=== PATIENT | female | born 1940 | race Caucasian/White ===

== ENCOUNTER 2016-11-25 20:33 | Inpatient (IN) | payer OTHER ==
[~2016-11-25] VITALS: Ht 152.4 cm; Wt 79.4 kg
[~2016-11-25 20:33] MED LIST: ACIPHEX20 MG PO; ELAVIL50 MG PO; LEVOTHROID75 MCG PO; LOPRESSOR25 MG PO; XANAX0.125 MG PO; ZESTRIL,PRINIVI10 MG PO
[2016-11-25 21:29] LABS: EOSINOPHIL (%) 0.1 % (0-5); HEMATOCRIT 41.1 % (36.0-46.0); IMMATURE GRANULOCYTE COUNT 0.2 K/uL; INSTRUMENT ABS NEUTROPHIL CT 16.2 K/uL; LYMPHOCYTE COUNT 1.1 K/uL (1.0-2.8); MCH 29.4 PG (29.0-34.0); MCHC 32.4 G/DL (30.0-36.0); MCV 90.7 FL (83-99); MEAN PLAT.VOLUME 10.2 uM^3 (9.5-12.4); MONOCYTE (%) 6.1 % (3-12); MONOCYTE COUNT 1.1 K/uL (0-0.8); NEUTROPHIL COUNT 16.2 K/uL (1.8-6.4); PLATELET COUNT 218 K/uL (156-360); RBC DIS.WIDTH-CV 13.8 % (11.8-14.6); RBC DIS.WIDTH-SD 45.5 % (39-53); RED BLOOD COUNT 4.53 M/uL (3.80-5.20); WHITE BLOOD COUNT 18.7 K/uL (4.1-10.2)
[2016-11-25 21:38] LABS: CHLORIDE 104 mEq/L (99-109); POTASSIUM 3.9 mEq/L (3.7-5.4); SODIUM 140 mEq/L (136-147)
[2016-11-25 21:40] LABS: GLUCOSE 196 mg/dL (70-99)
[2016-11-25 21:41] LABS: ANION GAP 14 MEQ/L (2-14)
[2016-11-25 21:42] LABS: TOTAL BILIRUBIN 0.5 mg/dL (0.0-1.0)
[2016-11-25 21:43] LABS: ALKALINE PHOSPHATASE 72 IU/L (3-129)
[2016-11-25 21:44] LABS: GFR ESTIMATE (CALCULATED) 29 mL/min/
[2016-11-25 21:45] LABS: UREA NITROGEN (BUN) 30 mg/dL (9-23)
[2016-11-25 21:47] LABS: LIPASE 16 U/L (1.0-51.0)
[2016-11-25 21:51] LABS: TROP-I INTERPRETATION NEGATIVE; TROPONIN-I < 0.01 ng/mL (0.0-0.30)
[2016-11-26] MEDS ORDERED: PRINIVIL5 MG PO (00:03)
[2016-11-26] MEDS ORDERED: XANAX0.25 MG PO (00:04)
[2016-11-26] MEDS ORDERED: ELAVIL75 MG PO (00:04)
[2016-11-26] MEDS ORDERED: SYNTHROID75 MCG PO (00:05)
[2016-11-26] MEDS ORDERED: MELATONIN3 MG PO (00:05)
[2016-11-26] MEDS ORDERED: GARLIC100 MG PO (00:05)
[2016-11-26] MEDS ORDERED: FISH OIL 1,0001 EAC7 PO (00:05)
[2016-11-26] MEDS ORDERED: TYLENOL EXTRA500 MG PO (00:05)
[2016-11-26] MEDS ORDERED: FAMOTIDINE20 MG PO (00:06)
[2016-11-26] MEDS ORDERED: VOLTAREN 1% GE100 GM TP (00:06)
[2016-11-26] MEDS ORDERED: PRAMIPEXOLE0.125 MG PO (00:06)
[2016-11-26] MEDS ORDERED: WELLBUTRIN SR150 MG PO (00:06)
[2016-11-26] MEDS ORDERED: PREDNISONE1 MG PO (00:07)
[2016-11-26] MEDS ORDERED: METAXALONE800 MG PO (00:07)
[2016-11-26] MEDS ORDERED: LO-DOSE ASPIRIN81 M2 PO (00:07)
[2016-11-26] MEDS ORDERED: PREDNISONE5 MG PO (00:07)
[2016-11-26] MEDS ORDERED: PRAVASTATIN SOD40 MG PO (00:07)
[2016-11-26] MEDS ORDERED: ERGOCALCIF50000 UNIT PO (00:07)
[2016-11-26] MEDS ORDERED: BUPROPION HCL150 M2 PO (00:08)
[2016-11-26 02:21] LABS: ADD MIUA? NO; BILIRUBIN NEGATIVE; BLOOD NEGATIVE; COLOR DK YELLOW ((YELLOW)); GLUCOSE (STRIP) NEGATIVE; KETONES NEGATIVE; LEUKOCYTES NEGATIVE; NITRITE NEGATIVE; PROTEIN (STRIP) 30; SPECIFIC GRAVITY 1.029 (1.000-1.030); UCUL ADDED? NO; UROBILINOGEN 0.2 MG/DL (0.2-1.0)
[2016-11-26 06:39] LABS: HEMATOCRIT 29.5 % (36.0-46.0); MCH 30.2 PG (29.0-34.0); MCHC 32.5 G/DL (30.0-36.0); MCV 92.8 FL (83-99); RBC DIS.WIDTH-CV 13.6 % (11.8-14.6); WHITE BLOOD COUNT 13.7 K/uL (4.1-10.2)
[2016-11-26 06:40] LABS: RED BLOOD COUNT 3.18 M/uL (3.80-5.20)
[2016-11-26 07:02] LABS: EOSINOPHIL (%) 0.1 % (0-5); IMMATURE GRANULOCYTE (%) 0.7 % (0.0-0.7); IMMATURE GRANULOCYTE COUNT 0.1 K/uL; INSTRUMENT ABS NEUTROPHIL CT 11.7 K/uL; LYMPHOCYTE COUNT 0.9 K/uL (1.0-2.8); MONOCYTE (%) 7.8 % (3-12); MONOCYTE COUNT 1.1 K/uL (0-0.8); NEUTROPHIL COUNT 11.7 K/uL (1.8-6.4)
[2016-11-26 07:11] LABS: ALKALINE PHOSPHATASE 47 IU/L (3-129); ANION GAP 10 MEQ/L (2-14); CHLORIDE 110 MEQ/L (99-109); POTASSIUM 3.4 MEQ/L (3.7-5.4); SAMPLE HEMOLYSIS CHECK 0; SAMPLE ICTERIC CHECK 0; SAMPLE LIPEMIA CHECK 0; SODIUM 137 MEQ/L (136-147); TOTAL BILIRUBIN 0.5 MG/DL (0.0-1.0); UREA NITROGEN (BUN) 23 mg/dL (9-23)
[2016-11-26 07:15] LABS: GFR ESTIMATE (CALCULATED) 42 mL/min/; GLUCOSE 81 mg/dL (70-99)
[2016-11-26 07:27] LABS: PLATELET COUNT 143 K/uL (156-360)
[2016-11-26 07:29] LABS: Estimated Average Glucose 120 mg/dL (70-123); HEMOGLOBIN A1c (GLYCOHEMOGLOB) 5.8 % HGB (Below 5.7)
[2016-11-26 07:56] VITALS: BP 94/42
[2016-11-26 11:00] VITALS: BP 94/46
[2016-11-26 13:31] LABS: C DIFF TOXIN NEGATIVE (NEGATIVE)
[2016-11-26 13:32] LABS: PROBE CHECK PASS; SPECIMEN PROCESSING CONTROL PASS
[2016-11-26 15:49] VITALS: BP 116/54
[2016-11-26 16:47] VITALS: BP 131/66
[2016-11-26 19:17] VITALS: BP 113/56
[2016-11-26 23:57] VITALS: BP 129/68
[2016-11-27 07:37] LABS: MCH 30.5 PG (29.0-34.0); MCHC 32.6 G/DL (30.0-36.0); MCV 93.7 FL (83-99); MEAN PLAT.VOLUME 9.9 uM^3 (9.5-12.4); PLATELET COUNT 136 K/uL (156-360); RBC DIS.WIDTH-CV 14.3 % (11.8-14.6); RBC DIS.WIDTH-SD 48.5 % (39-53); RED BLOOD COUNT 3.31 M/uL (3.80-5.20); WHITE BLOOD COUNT 11.2 K/uL (4.1-10.2)
[2016-11-27 08:35] VITALS: BP 118/52
[2016-11-27 09:08] LABS: ANION GAP 9 MEQ/L (2-14); CHLORIDE 114 MEQ/L (99-109); GFR ESTIMATE (CALCULATED) 57 mL/min/; GLUCOSE 83 mg/dL (70-99); SAMPLE HEMOLYSIS CHECK 0; SAMPLE ICTERIC CHECK 0; SAMPLE LIPEMIA CHECK 0; SODIUM 138 MEQ/L (136-147); UREA NITROGEN (BUN) 9 mg/dL (9-23)
[2016-11-27 09:09] LABS: C-REACTIVE PROTEIN > 480.0 MG/L (0-10); POTASSIUM 4.1 MEQ/L (3.7-5.4)
[2016-11-27 17:51] VITALS: BP 133/58
[2016-11-27 22:50] VITALS: BP 130/60
[2016-11-28 07:22] VITALS: BP 115/55
[2016-11-28 08:05] LABS: ANION GAP 9 MEQ/L (2-14); CHLORIDE 112 MEQ/L (99-109); GFR ESTIMATE (CALCULATED) > 59 mL/min/; GLUCOSE 72 mg/dL (70-99); SAMPLE HEMOLYSIS CHECK 0; SAMPLE ICTERIC CHECK 0; SAMPLE LIPEMIA CHECK 0; SODIUM 143 MEQ/L (136-147); UREA NITROGEN (BUN) 5 mg/dL (9-23)
[2016-11-28 16:51] VITALS: BP 119/63
[2016-11-28 22:58] VITALS: BP 118/56
[2016-11-29 07:26] LABS: EOSINOPHIL COUNT 0.1 K/uL (0-0.3); HEMATOCRIT 28.3 % (36.0-46.0); IMMATURE GRANULOCYTE (%) 1.2 % (0.0-0.7); IMMATURE GRANULOCYTE COUNT 0.1 K/uL; INSTRUMENT ABS NEUTROPHIL CT 4.5 K/uL; LYMPHOCYTE COUNT 1.2 K/uL (1.0-2.8); MCH 29.4 PG (29.0-34.0); MCHC 32.2 G/DL (30.0-36.0); MCV 91.6 FL (83-99); MEAN PLAT.VOLUME 9.8 uM^3 (9.5-12.4); MONOCYTE (%) 7.8 % (3-12); MONOCYTE COUNT 0.5 K/uL (0-0.8); NEUTROPHIL (%) 69.6 % (45-76); NEUTROPHIL COUNT 4.5 K/uL (1.8-6.4); PLATELET COUNT 175 K/uL (156-360); RBC DIS.WIDTH-CV 14.1 % (11.8-14.6); RBC DIS.WIDTH-SD 47.3 % (39-53); RED BLOOD COUNT 3.09 M/uL (3.80-5.20); WHITE BLOOD COUNT 6.4 K/uL (4.1-10.2)
[2016-11-29 07:57] LABS: ANION GAP 7 MEQ/L (2-14); CHLORIDE 113 MEQ/L (99-109); GFR ESTIMATE (CALCULATED) > 59 mL/min/; GLUCOSE 90 mg/dL (70-99); POTASSIUM 3.3 MEQ/L (3.7-5.4); SAMPLE HEMOLYSIS CHECK 0; SAMPLE ICTERIC CHECK 0; SAMPLE LIPEMIA CHECK 0; SODIUM 142 MEQ/L (136-147); UREA NITROGEN (BUN) 4 mg/dL (9-23)
[2016-11-29 08:08] VITALS: BP 132/69
[2016-11-29] MEDS ORDERED: DELZICOL400 M1 PO (10:25)
[2016-11-29] MEDS ORDERED: ZOFRAN4 MG PO (10:25)
== END 2016-11-29 11:36 | disposition home or self-care (01) | DRG 871 ==
LOC: EME 20:33 → EDOF 11-26 01:13 → 5EAST 11-26 03:01
PROVIDERS: Emergency Medicine; Hospitalist; Internal Medicine; Internal Medicine Gastroenterology
DX: A41.9 Sepsis, unspecified organism (principal); K55.039 Acute (reversible) ischemia of large intestine, extent unspecified; F33.9 Major depressive disorder, recurrent, unspecified; K62.5 Hemorrhage of anus and rectum; N17.9 Acute kidney failure, unspecified; E87.2 Acidosis; I10 Essential (primary) hypertension; E78.5 Hyperlipidemia, unspecified; I95.9 Hypotension, unspecified; K21.9 Gastro-esophageal reflux disease without esophagitis; R65.20 Severe sepsis without septic shock; E03.9 Hypothyroidism, unspecified; F41.9 Anxiety disorder, unspecified; E86.0 Dehydration; E87.6 Hypokalemia; G47.00 Insomnia, unspecified; M35.3 Polymyalgia rheumatica; E66.9 Obesity, unspecified; Z68.34 Body mass index [BMI] 34.0-34.9, adult; Z86.010 Personal history of colon polyps; Z88.5 Allergy status to narcotic agent; Z80.9 Family history of malignant neoplasm, unspecified; Z82.49 Family history of ischemic heart disease and other diseases of the circulatory system
CPT/HCPCS: 74176; 80048; 80053; 81003; 83036; 83605; 83690; 84484; 85025; 85027; 86140; 86900; 86901; 87177; 87493; 87506; 93005; 94799; 99281; 99285; J0696; J0744; J1956; J2405; J2543; J3010; J7030; J7050; J7120; J7512; S0030

== ENCOUNTER 2017-01-19 18:30 | Emergency (ER) | payer OTHER ==
[~2017-01-19] VITALS: Ht 152.4 cm; Wt 82.0 kg
[~2017-01-19 18:30] MED LIST changes: +BUPROPION HCL150 M2 PO; +DELZICOL400 M1 PO; +ELAVIL75 MG PO; +ERGOCALCIF50000 UNIT PO; +FAMOTIDINE20 MG PO; +FISH OIL 1,0001 EAC7 PO; +GARLIC100 MG PO; +LO-DOSE ASPIRIN81 M2 PO; +MELATONIN3 MG PO; +METAXALONE800 MG PO; +PRAMIPEXOLE0.125 MG PO; +PRAVASTATIN SOD40 MG PO; +PREDNISONE1 MG PO; +PREDNISONE5 MG PO; +PRINIVIL5 MG PO; +SYNTHROID75 MCG PO; +TYLENOL EXTRA500 MG PO; +VOLTAREN 1% GE100 GM TP; +WELLBUTRIN SR150 MG PO; +XANAX0.25 MG PO; +ZOFRAN4 MG PO
[2017-01-19 19:25] LABS: ADD MIUA? YES; BILIRUBIN NEGATIVE; BLOOD LARGE; GLUCOSE (STRIP) NEGATIVE; KETONES NEGATIVE; LEUKOCYTES LARGE; PROTEIN (STRIP) 100; SPECIFIC GRAVITY 1.005 (1.000-1.030); UROBILINOGEN 0.2 MG/DL (0.2-1.0)
[2017-01-19 19:28] LABS: COLOR LT.RED ((YELLOW))
[2017-01-19] MEDS ORDERED: KEFLEX500 MG PO (19:42)
[2017-01-19] MEDS ORDERED: PYRIDIUM200 MG PO (19:42)
[2017-01-19 19:45] LABS: BACTERIA 1+ /HPF; EPITHELIAL CELLS RARE /HPF; MUCUS NONE SEEN /LPF; RED BLOOD CELLS 30-40 /HPF (0-5); UCUL ADDED? YES; WHITE BLOOD CELLS TNTC /HPF (0-5)
[2017-01-19 19:51] LABS: NITRITE POSITIVE
[2017-01-19 20:06] VITALS: BP 176/74
== END 2017-01-19 20:08 | disposition home or self-care (01) ==
LOC: RME 18:30 → EME 18:30 → RME 20:08
DX: N39.0 Urinary tract infection, site not specified (principal); I10 Essential (primary) hypertension; Z79.52 Long term (current) use of systemic steroids; Z79.82 Long term (current) use of aspirin
CPT/HCPCS: 81003; 87077; 87086; 87186; 99281; 99283

== ENCOUNTER 2017-07-17 13:40 | Emergency (ER) | payer OTHER ==
[~2017-07-17] VITALS: Ht 152.4 cm; Wt 80.1 kg
[~2017-07-17 13:40] MED LIST changes: +KEFLEX500 MG PO; +PYRIDIUM200 MG PO
[2017-07-17 15:04] LABS: HEMATOCRIT 38.5 % (36.0-46.0); HEMOGLOBIN 12.6 G/DL (11.9-15.5); MCHC 32.7 G/DL (30.0-36.0); MCV 85.6 FL (83-99); PLATELET COUNT 208 K/uL (156-360); RBC DIS.WIDTH-CV 13.7 % (11.8-14.6); RBC DIS.WIDTH-SD 42.7 % (39-53); WHITE BLOOD COUNT 7.7 K/uL (4.1-10.2)
[2017-07-17 15:12] LABS: CHLORIDE 106 mEq/L (99-109); POTASSIUM 4.6 mEq/L (3.7-5.4); SODIUM 140 mEq/L (136-147)
[2017-07-17 15:13] LABS: GLUCOSE 87 mg/dL (70-99)
[2017-07-17 15:17] LABS: GFR ESTIMATE (CALCULATED) 57 mL/min/
[2017-07-17 15:18] LABS: UREA NITROGEN (BUN) 22 mg/dL (9-23)
[2017-07-17] MEDS ORDERED: PHENERGAN-CODE120 ML PO (16:06)
[2017-07-17] MEDS ORDERED: VENTOLIN HFA18 GM IH (16:07)
[2017-07-17 16:20] VITALS: BP 148/50
== END 2017-07-17 16:21 | disposition home or self-care (01) ==
LOC: EME 13:40
PROVIDERS: Nurse Practitioner Family
DX: R05 Cough (principal); M79.1 Myalgia; I10 Essential (primary) hypertension; E78.00 Pure hypercholesterolemia, unspecified; Z79.82 Long term (current) use of aspirin; Z88.6 Allergy status to analgesic agent; Z88.5 Allergy status to narcotic agent
CPT/HCPCS: 71046; 80048; 85027; 94640

== ENCOUNTER 2017-07-22 13:25 | Observation (INO) | payer OTHER ==
[~2017-07-22] VITALS: Ht 152.4 cm; Wt 79.0 kg
[~2017-07-22 13:25] MED LIST changes: +PHENERGAN-CODE120 ML PO; +VENTOLIN HFA18 GM IH
[2017-07-22 14:46] LABS: HEMATOCRIT 38.9 % (36.0-46.0); HEMOGLOBIN 12.7 G/DL (11.9-15.5); MCH 28.4 PG (29.0-34.0); MCHC 32.6 G/DL (30.0-36.0); PLATELET COUNT 241 K/uL (156-360); RBC DIS.WIDTH-CV 13.8 % (11.8-14.6); RBC DIS.WIDTH-SD 43.5 % (39-53); RED BLOOD COUNT 4.47 M/uL (3.80-5.20); WHITE BLOOD COUNT 8.2 K/uL (4.1-10.2)
[2017-07-22 14:58] LABS: CHLORIDE 99 mEq/L (99-109); POTASSIUM 4.1 mEq/L (3.7-5.4); SODIUM 138 mEq/L (136-147)
[2017-07-22 15:00] LABS: GLUCOSE 103 mg/dL (70-99)
[2017-07-22 15:04] LABS: CREATININE 1.1 mg/dL (0.6-1.3); GFR ESTIMATE (CALCULATED) 51 mL/min/; UREA NITROGEN (BUN) 26 mg/dL (9-23)
[2017-07-22] MEDS ORDERED: BENZONATATE200 MG PO (18:28)
[2017-07-22] MEDS ORDERED: AMOX TR-K CLV1 EAC4 PO (18:28)
[2017-07-22] MEDS ORDERED: MIRAPEX0.125 MG PO (18:32)
[2017-07-22] MEDS ORDERED: LOPRESSOR25 MG PO (18:36)
[2017-07-22] MEDS ORDERED: PRINIVIL5 MG PO (18:39)
[2017-07-22 19:50] LABS: APPEARANCE SL.HAZY ((CLEAR)); BILIRUBIN NEGATIVE; BLOOD NEGATIVE; COLOR AMBER ((YELLOW)); GLUCOSE (STRIP) NEGATIVE; KETONES 5; LEUKOCYTES TRACE; NITRITE NEGATIVE; PROTEIN (STRIP) 30; SPECIFIC GRAVITY 1.033 (1.000-1.030); UROBILINOGEN 0.2 MG/DL (0.2-1.0)
[2017-07-22 19:56] LABS: BACTERIA RARE /HPF; EPITHELIAL CELLS 2+ /HPF; HYALINE CASTS 0-5 /LPF; MUCUS TRACE /LPF; RED BLOOD CELLS 0-5 /HPF (0-5); UCUL ADDED? NO; WHITE BLOOD CELLS 0-5 /HPF (0-5)
[2017-07-22] MEDS ORDERED: VENTOLIN HFA18 GM IH (21:54)
[2017-07-22] MEDS ORDERED: SCOPOLAMINE1 EACH TD (21:56)
[2017-07-23 01:44] VITALS: BP 105/65
[2017-07-23 09:00] VITALS: BP 115/64
[2017-07-23 12:20] VITALS: BP 113/70
[2017-07-23 15:50] VITALS: BP 120/83
[2017-07-23 20:00] VITALS: BP 120/55
[2017-07-24 00:27] VITALS: BP 115/56
[2017-07-24 05:58] LABS: HEMOGLOBIN 10.8 G/DL (11.9-15.5); MCH 27.5 PG (29.0-34.0); MCHC 31.8 G/DL (30.0-36.0); MCV 86.5 FL (83-99); PLATELET COUNT 202 K/uL (156-360); RBC DIS.WIDTH-CV 13.8 % (11.8-14.6); RBC DIS.WIDTH-SD 43.4 % (39-53); RED BLOOD COUNT 3.93 M/uL (3.80-5.20); WHITE BLOOD COUNT 8.2 K/uL (4.1-10.2)
[2017-07-24 06:18] LABS: CHLORIDE 104 MEQ/L (99-109); GFR ESTIMATE (CALCULATED) 57 mL/min/; SODIUM 137 MEQ/L (136-147); UREA NITROGEN (BUN) 21 mg/dL (9-23)
[2017-07-24 06:32] LABS: GLUCOSE 161 mg/dL (70-99); POTASSIUM 5.1 MEQ/L (3.7-5.4)
[2017-07-24 07:49] VITALS: BP 112/60
[2017-07-24] MEDS ORDERED: MUCINEX600 MG PO (09:39)
[2017-07-24] MEDS ORDERED: PREDNISONE10 MG PO (09:39)
[2017-07-24] MEDS ORDERED: FLONASE16 G1 BOTH NARES (09:39)
== END 2017-07-24 10:53 | disposition home or self-care (01) ==
LOC: EME 13:25 → EDOF 23:47 → ENRESERV 23:49 → 5WEST 07-23 01:19
PROVIDERS: Physician Assistant
DX: J32.0 Chronic maxillary sinusitis (principal); J32.2 Chronic ethmoidal sinusitis; R09.02 Hypoxemia; J20.9 Acute bronchitis, unspecified; M35.3 Polymyalgia rheumatica; R41.82 Altered mental status, unspecified; I10 Essential (primary) hypertension; E78.5 Hyperlipidemia, unspecified; F32.9 Major depressive disorder, single episode, unspecified; F41.9 Anxiety disorder, unspecified; K21.9 Gastro-esophageal reflux disease without esophagitis; I25.2 Old myocardial infarction; E03.9 Hypothyroidism, unspecified; Z90.710 Acquired absence of both cervix and uterus; Z82.49 Family history of ischemic heart disease and other diseases of the circulatory system; Z88.5 Allergy status to narcotic agent; Z79.82 Long term (current) use of aspirin; R10.84 Generalized abdominal pain
CPT/HCPCS: 70450; 71046; 71275; 80048; 81003; 85027; 85379; 87502; 87641; 93005; 94640; 94640 76; 94799; 99202; 99281; 99285; G0378; J1644; J2930; J7040; J7512

== ENCOUNTER 2017-10-19 11:30 | Observation (INO) | payer OTHER ==
[~2017-10-19] VITALS: Ht 152.4 cm; Wt 80.0 kg
[~2017-10-19 11:30] MED LIST changes: +AMOX TR-K CLV1 EAC4 PO; +BENZONATATE200 MG PO; +FLONASE16 G1 BOTH NARES; +MIRAPEX0.125 MG PO; +MUCINEX600 MG PO; +PREDNISONE10 MG PO; +TRANSDERM-SCOP1 EACH TD
[2017-10-19 12:00] LABS: HEMATOCRIT 34.6 % (36.0-46.0); HEMOGLOBIN 11.5 G/DL (11.9-15.5); MCH 29.1 PG (29.0-34.0); MCHC 33.2 G/DL (30.0-36.0); MCV 87.6 FL (83-99); PLATELET COUNT 195 K/uL (156-360); RBC DIS.WIDTH-SD 41.7 % (39-53); RED BLOOD COUNT 3.95 M/uL (3.80-5.20); WHITE BLOOD COUNT 4.1 K/uL (4.1-10.2)
[2017-10-19 12:11] LABS: CHLORIDE 109 mEq/L (99-109); POTASSIUM 4.1 mEq/L (3.7-5.4); SODIUM 144 mEq/L (136-147)
[2017-10-19 12:13] LABS: GLUCOSE 149 mg/dL (70-99)
[2017-10-19 12:17] LABS: CREATININE 0.9 mg/dL (0.6-1.3); GFR ESTIMATE (CALCULATED) > 59 mL/min/
[2017-10-19 12:18] LABS: UREA NITROGEN (BUN) 14 mg/dL (9-23)
[2017-10-19 13:01] LABS: ALBUMIN 4.1 g/dL (3.2-4.8)
[2017-10-19 13:02] LABS: MAGNESIUM 2.2 mg/dL (1.3-2.7)
[2017-10-19 13:04] LABS: TOTAL PROTEIN 6.3 g/dL (6.4-8.3)
[2017-10-19 13:06] LABS: ALKALINE PHOSPHATASE 84 IU/L (3-129); TOTAL BILIRUBIN 0.3 mg/dL (0.0-1.0)
[2017-10-19 13:09] LABS: AST (GOT) 18 IU/L (2-34)
[2017-10-19 13:10] LABS: ALT (GPT) 11 IU/L (3-49)
[2017-10-19 13:18] LABS: TROP-I INTERPRETATION NEGATIVE; TROPONIN-I < 0.01 ng/mL (0.0-0.30)
[2017-10-19 18:24] LABS: HDL CHOLESTEROL 46 MG/DL (Desirable>=50); LDL CHOLESTEROL 71 mg/dL (Desirable<100); NON-HDL CHOLESTEROL 106 mg/dL (Desirable<160); TOTAL CHOLESTEROL 152 mg/dL (Desirable<200); TRIGLYCERIDES 176 MG/DL (Normal: <150)
[2017-10-19 18:30] VITALS: BP 180/74
[2017-10-19 20:24] VITALS: BP 152/64
[2017-10-20 00:58] VITALS: BP 134/60
[2017-10-20 04:33] VITALS: BP 141/65
[2017-10-20 07:47] VITALS: BP 145/75
[2017-10-20 10:32] LABS: HEMOGLOBIN A1c (GLYCOHEMOGLOB) 5.3 % (Below 5.7)
[2017-10-20] MEDS ORDERED: TRANSDERM-SCOP1 EACH TD (11:15)
[2017-10-20 11:42] LABS: APPEARANCE CLEAR ((CLEAR)); BILIRUBIN NEGATIVE; BLOOD NEGATIVE; COLOR YELLOW ((YELLOW)); GLUCOSE (STRIP) NEGATIVE; KETONES NEGATIVE; LEUKOCYTES NEGATIVE; NITRITE NEGATIVE; PROTEIN (STRIP) NEGATIVE; SPECIFIC GRAVITY 1.009 (1.000-1.030); UCUL ADDED? NO; UROBILINOGEN 0.2 MG/DL (0.2-1.0)
[2017-10-20 12:11] VITALS: BP 173/73
== END 2017-10-20 12:43 | disposition home or self-care (01) ==
LOC: EME 11:30 → 5SOUTH 14:57 → EDOF 14:57 → 5SOUTH 14:57 → ENRESERV 15:00 → 5SOUTH 17:44
PROVIDERS: Internal Medicine
DX: H81.10 Benign paroxysmal vertigo, unspecified ear (principal); J32.2 Chronic ethmoidal sinusitis; R20.2 Paresthesia of skin; I65.23 Occlusion and stenosis of bilateral carotid arteries; R26.89 Other abnormalities of gait and mobility; I10 Essential (primary) hypertension; E78.5 Hyperlipidemia, unspecified; I25.2 Old myocardial infarction; K21.9 Gastro-esophageal reflux disease without esophagitis; M35.3 Polymyalgia rheumatica; E03.9 Hypothyroidism, unspecified; F41.9 Anxiety disorder, unspecified; F32.9 Major depressive disorder, single episode, unspecified; R51 Headache; Z90.710 Acquired absence of both cervix and uterus; Z88.5 Allergy status to narcotic agent; Z79.82 Long term (current) use of aspirin
CPT/HCPCS: 70450; 70551; 71046; 80048; 80053; 80061; 81003; 83036; 83735; 84484; 85027; 93005; 93306; 93880; 99281; 99285; G0378; J1650